=== PATIENT | female | born 1995 | race Caucasian/White ===

== ENCOUNTER 2018-10-13 06:54 | Inpatient (IN) | payer BC, OTHER ==
[2018-10-13] MEDS ORDERED: TERBUTALINE 1 MG/ML VIAL SQ PRN (07:21)
[2018-10-13] MEDS ORDERED: CARBOPROST TROMETHAMINE 250 MCG/ML 1 ML AMP IM PRN (07:21)
[2018-10-13] MEDS ORDERED: LIDOCAINE 0.5% (PF) 5 MG/ML (50 ML SDV) SQ PRN (07:21)
[2018-10-13] MEDS ORDERED: OXYTOCIN 10 UNIT/ML 1 ML VIAL IM PRN (07:21)
[2018-10-13] MEDS ORDERED: METHYLERGONOVINE 0.2 MG/ML 1 ML AMP IM PRN (07:21)
[2018-10-13] MEDS ORDERED: OXYTOCIN 30 UNITS/500 ML NS 30 UNIT in SALINE 1 500ML.BAG IV SCH (07:30)
[2018-10-13] MEDS: CLINDAMYCIN 900 MG in DEXTROSE 5% IN WATER 50 ML IVPB SCH ×4 (07:43→16:54)
[2018-10-13] MEDS: LACTATED RINGERS 1,000 ML IV SCH ×2 (07:43→08:24)
[2018-10-13] MEDS ORDERED: fentaNYL (PF) 50 MCG/ML 5 ML AMP ONE (07:44)
[2018-10-13] MEDS ORDERED: SODIUM CHLORIDE 0.9% 100 ML BAG ONE (07:44)
[2018-10-13] MEDS ORDERED: ROPIVACAINE 5MG/ML 20ML VIAL ONE (07:44)
--- NOTE | 2018-10-13 07:55 | P.HPOB ---
History of Present Illness H&P Date: 10/13/18 Chief Complaint: Strong regular uterine contractions This is a 23-year-old white female 3 para 2002 EDC 10/21/2018 at 38-6/7 weeks' gestation. Patient presents this morning with strong regular uterine contractions, in active labor. She denies fluid leakage or vaginal bleeding. Fetus is been active throughout the past medical history is unremarkable. Past surgical history is negative. Current medications vitamins daily. ALLERGIES include no known medical ALLERGIES. Family history significant for diabetes. Reproductive history normal spontaneous vaginal deliveries 2. Social history patient has never been a smoker, she is , she denies alcohol or drug use. history significant for blood type B positive, rubella status immune. VDRL testing, urine culture, hepatitis B surface antigen, HIV testing, gonorrhea and chlamydia cultures all negative. One-hour Glucola 75. Group B strep cultures positive. On exam this is a pleasant young female, she is 5 foot 8 inches, 280 pounds, vital signs are stable and patient is afebrile. The general physical exam is within normal limits. Cervix is 5 cm dilated, 100% effaced, vertex presentation, -2 station. heart tones are consistent with reactive NST Impression: 38-6/7 weeks intrauterine , active labor. Positive group B strep cultures. Plan: We will use clindamycin prophylactically as patient states that the penicillin she received previously caused her arm to burn. Epidural is being placed per patient's request. Artificial amniorrhexis to follow. Continue close maternal and surveillance. Anticipate normal spontaneous vaginal delivery. Review of Systems Constitutional: Reports as per HPI Past Medical History History of Any Multi-Drug Resistant Organisms: None Reported Smoking Status: Never smoker Medications and Allergies Home Medications Medication Instructions Recorded Confirmed Type Pnv No.95/Ferrous Fum/Folic AC 1 each PO DAILY 10/13/18 10/13/18 History [ Multivitamin Tablet] Allergies Allergy/AdvReac Type Severity Reaction Status Date / Time penicillin G Allergy Rash/Hives Verified 10/13/18 07:06 Exam Intake and Output 10/12/18 10/13/18 10/13/18 22:59 06:59 14:59 Other: Weight 128.367 kg Assessment and Plan Assessment: 38-6/7 weeks intrauterine , active spontaneous labor. Positive group B strep cultures. Epidural being placed at this time per patient request. Plan: Continue close maternal and surveillance. Anticipate normal spontaneous vaginal delivery. Antibiotic prophylaxis instituted. Time with Patient: Less than 30
[2018-10-13 08:10] LABS: Basophils % (A) 0 %; Eosinophils # (A) 0.1 k/uL (0-0.7); Eosinophils % (A) 1 %; HCT 33.8 % (34.0-46.0); Lymphocytes % (A) 22 %; MCH 25.9 pg (25.0-35.0); MCHC 32.5 g/dL (31.0-37.0); MCV 79.8 fL (80.0-100.0); Mean Platelet Volume 7.6; Monocytes # (A) 0.5 k/uL (0-1.0); Monocytes % (A) 5 %; Neutrophils # (A) 6.6 k/uL (1.3-7.7); Neutrophils % (A) 70 %; Platelet Count 346 k/uL (150-450); RBC 4.24 m/uL (3.80-5.40); RDW 14.5 % (11.5-15.5); WBC 9.3 k/uL (3.8-10.6)
[2018-10-13 08:14] VITALS: BMI 43.0
[2018-10-13] MEDS: OXYTOCIN 20 UNITS/1000 ML NS 1,000 ML IV SCH ×2 (10:18→12:19)
[2018-10-13] MEDS ORDERED: diphenhydrAMINE 50 MG/ML 1 ML VIAL IVP PRN ×2 (10:27)
[2018-10-13] MEDS ORDERED: WITCH HAZEL 1 EACH MED..PAD TOPICAL PRN (10:27)
[2018-10-13] MEDS ORDERED: diphenhydrAMINE ELIXIR 25 MG/10 ML CUP PO PRN (10:27)
[2018-10-13] MEDS ORDERED: diphenhydrAMINE 50 MG CAP PO PRN (10:27)
[2018-10-13] MEDS ORDERED: BENZOCAINE/MENTHOL SPRAY 1 GM/SPRAY AEROSOL TOPICAL PRN (10:27)
[2018-10-13] MEDS ORDERED: ZOLPIDEM 5 MG TAB PO PRN (10:27)
[2018-10-13] MEDS ORDERED: SIMETHICONE 80 MG CHEWABLE PO PRN (10:27)
[2018-10-13] MEDS ORDERED: diphenhydrAMINE 25 MG CAP PO PRN (10:27)
[2018-10-13] MEDS ORDERED: LANOLIN CREAM 5 GM TUBE TOPICAL PRN (10:27)
[2018-10-13] MEDS ORDERED: HYDROCORTISONE 2.5% RECTAL CREAM 30 GM TUBE RECTAL PRN (10:27)
[2018-10-13] MEDS ORDERED: ACETAMINOPHEN TAB 325 MG TAB PO PRN (10:27)
--- NOTE | 2018-10-13 10:27 | P.PROBDLV ---
Vaginal Delivery Note - . Vaginal Delivery Note: This is a 23-year-old white female 3 para 2001 EDC 10/21/2018 at 38-6/7 weeks' gestation. Patient presented in active spontaneous labor. Fetus is been active throughout the . She denied vaginal bleeding or fluid leakage. Group strep cultures were positive, rubella status immune. Blood type B+. Please see dictated history and physical for details. Patient was admitted, artificial amniorrhexis revealed clear fluid. She requested epidural and this was placed without difficulty. She progressed to the first stage of labor and was judged to be completely dilated at 1011 hrs. Leonor Meissen was given 1 dose. Perineal body was prepped and draped in the usual sterile fashion. With excellent maternal expulsive efforts the head delivered occiput anterior and restituted accordingly. The was a nuchal cord 1 that was reduced. The right or anterior shoulder was delivered easily from underneath the pubic symphysis at which time the oropharynx, nasopharynx, and external nares were bulb suctioned. Patient was officially delivered of a live born male at 1016 hrs. Umbilical cord was doubly clamped and ligated, he was handed to waiting nurses for evaluation where scores of 9 and 9 at one and 5 minutes respectively were given. Uterus is then massaged. Inspection of cervix, vagina, perineum, periurethral, and perirectal areas revealed no lacerations and no defects. No suture material was needed. weighed 8 lbs. 2 oz. or 3685 g. The patient is requesting circumcision for her son. All sponge needle and enhancement counts are correct at the end of the procedure. Estimated blood loss 250 mL's.
[2018-10-13] MEDS: IBUPROFEN 600 MG TAB PO PRN ×2 (12:17→20:31)
[2018-10-13] MEDS: SENNOSIDES-DOCUSATE SODIUM 1 EACH TAB PO SCH (20:31)
--- NOTE | 2018-10-14 05:28 | P.DS ---
Providers Date of admission: 10/13/18 07:22 Expected date of discharge: 10/14/18 Attending physician: Eula Arauz Primary care physician: Stated None Hospital Course: This is a 23-year-old white female 3 para 2002 EDC 10/21/2018 at 38-6/7 weeks' gestation. Patient presented in active spontaneous labor from home. was essentially unremarkable, blood type B positive, rubella status immune. Please see my dictated history and physical for details. Artificial amniorrhexis revealed clear fluid. Epidural was placed per her request. She went on to deliver a liveborn male infant with scores of 9 and 9 at one and 5 minutes respectively. There was a nuchal cord 1 that was easily reduced. Infant weighed 3685 g or 8 lbs. 2 oz. Estimated blood loss 250 mL's. No lacerations were deemed necessary. Please see dictated delivery note for details. This morning the patient is doing well. She is voiding, ambulating and passing flatus without difficulty. Vital signs are stable and she is afebrile. Fundus is Firm and in the midline, symmetric and 18 week size. [place] is doing well, circumcision has been performed. Breast-feeding is going well. I have given her prescription for a double electric breast pump per her request. Extremities reveal no edema. Patient is therefore being discharged home in very good condition. She will follow-up with me in the office in 6 weeks. I have reminded her no intercourse, tampons or douching. She will use [id number] Motrin or Advil, or Aleve as directed by the bottle as needed for pain. She will call with any fevers shakes or chills, foul smelling or copious lochia, with the passage of large blood clots, or indeed with any difficulties Patient Condition at Discharge: Good Plan - Discharge Summary Discharge Rx Participant: No New Discharge Prescriptions: No Action Pnv No.95/Ferrous Fum/Folic AC [ Multivitamin Tablet] 1 each PO DAILY Discharge Medication List Pnv No.95/Ferrous Fum/Folic AC [ Multivitamin Tablet] 1 each PO DAILY 10/13/18 [History] Follow up Appointment(s)/Referral(s): Eula Arauz MD [STAFF PHYSICIAN] - 6 Weeks Discharge Disposition: HOME SELF-CARE
[2018-10-14] MEDS: SENNOSIDES-DOCUSATE SODIUM 1 EACH TAB PO SCH (08:00)
[2018-10-14 09:41] VITALS: BP 114/64; PULSE 76; RESP 18; TEMP 98
[2018-10-14] MEDS: IBUPROFEN 600 MG TAB PO PRN (11:36)
== END 2018-10-14 13:53 | disposition home or self-care (01) | DRG 807 ==
LOC: FBPOP 06:54 → 4FBP 07:22
PROVIDERS: ADMIT Obstetrics & Gynecology; ATTEND Obstetrics & Gynecology
PROC: 10E0XZZ Delivery of Products of Conception, External Approach (ICD-10-PCS; principal; 2018-10-13)
PROC: 00HU33Z Insertion of Infusion Device into Spinal Canal, Percutaneous Approach (ICD-10-PCS; 2018-10-13)
PROC: 3E0R3BZ Introduction of Anesthetic Agent into Spinal Canal, Percutaneous Approach (ICD-10-PCS; 2018-10-13)
DX: O69.81X0 Labor and delivery complicated by cord around neck, without compression, not applicable or unspecified (principal); Z37.0 Single live birth; O99.824 Streptococcus B carrier state complicating childbirth; Z3A.38 38 weeks gestation of pregnancy; Z79.899 Other long term (current) drug therapy; Z88.0 Allergy status to penicillin; Z83.3 Family history of diabetes mellitus
CPT/HCPCS: 59025; 85025; 86850; 86900; 86901; 99213